=== PATIENT | female | born 1945 | race Caucasian/White ===

== ENCOUNTER 2022-06-03 01:35 | Emergency (ER) | payer OTHER ==
[2022-06-03] MEDS ORDERED: hydrOXYzine 25 MG TAB ONE (01:44)
[2022-06-03] MEDS ORDERED: Famotidine 20 MG TAB ONE (02:01)
== END 2022-06-03 04:30 | disposition home or self-care (01) ==
LOC: ERS 01:35
DX: L50.9 Urticaria, unspecified (principal)
CPT/HCPCS: 99283